=== PATIENT | female | born 2005 | race Caucasian/White ===

== ENCOUNTER 2024-12-11 19:15 | Emergency (ER) | payer BC, SELFPAY ==
[2024-12-11 19:24] VITALS: BP 137/81
--- NOTE | 2024-12-11 21:56 | ED.GENMED ---
History of Present Illness
General
Chief Complaint: Musculo-Skeletal Complaint
Source: patient
Exam Limitations: none
Time Seen by Provider: 12/11/24 21:39
Nursing documentation reviewed up to this point in time: agreed with
History of Present Illness
History of Present Illness:
Patient presents to ED secondary to left wrist pain over the past 6 months, which has worsened over the past 2 days. Patient does not recall any direct trauma. Denies loss of sensation or weakness. Patient states that she has intermittent pain at
rest, but worse with range of motion. Denies previous history of wrist injury. Patient currently works as a nanny, but states that she has not changed any routines.
Review of Systems
Review of Systems
Allergies reviewed?: Yes
All Other Systems: ROS reviewed and negative except as documented in HPI and ROS
Constitutional: Reports no symptoms
Musculoskeletal: Reports joint pain (Wrist pain)
Skin: Reports no symptoms
Neurological: Reports no symptoms; Denies weakness or numbness
Phy Exam
Physical Exam
Physical Exam:
Physical Exam
General: no apparent distress, not acutely ill. afebrile
Head: nc/at. eomi
Neck: supple. normal range of motion
Neuro: alert and oriented x 3. no focal neurological deficits
Skin: no rash
Psychiatric: well kept. interactive and cooperative
Extremities: mild diffuse left wrist tenderness to palpation and w/ range of motion, without ecchymosis/erythema/swelling
Course
Orders/Labs/Results
Orders:
Orders
12/11/24 19:26
Wrist, Left 3 Views CR [CR Wrist - Left Min 3 Views] Urgent
Comment:
Reason For Exam: pain
Vital Signs
Initial and Last Documented VS:
Initial Vital Signs
Temp Pulse Resp BP Pulse Ox
98.5 F 96 16 137/81 98
12/11/24 19:24 12/11/24 19:24 12/11/24 19:24 12/11/24 19:24 12/11/24 19:24
Last Documented Vital Signs
Temp Pulse Resp BP Pulse Ox
98.5 F 96 16 137/81 98
12/11/24 19:24 12/11/24 19:24 12/11/24 19:24 12/11/24 19:24 12/11/24 19:24
MDM/Problems Addressed
MDM/Problems Addressed:
X-ray wrist: No acute findings. Patient presenting with nonspecific wrist pain, without any obvious source of injury. Patient states that she only has Velcro wrist splint at home, which she will utilize and be referred to hand surgery for an
outpatient evaluation.
*Critical Care Note
Total Time (30-74mins, 75-104mins- exclusive of procedures): Not Applicable
ED Attending Note
-
Portions of this chart may have been created with voice recognition software.� Occasional wrong word or��sound alike� substitutions may have occurred due to the inherent limitations of voice recognition software.
Discharge Plan
Departure
Patient Disposition: Home (Routine Discharge)
Date of Disposition: 12/11/24
Time of Disposition: 21:56
Patient with high blood pressure during this ER visit?: Yes
Condition: Good
Discharge Problem:
Painful wrist
Instructions: Common Wrist Injuries ED
Referrals:
NONE,* [Family Provider] -
Mauor Pearson MD [Active] -
Activity Restrictions/Additional Instructions:
As discussed, please follow-up with referred hand surgeon for further evaluation and treatment.
Interventions
Interventions:
*Risk Screen - Suicide Last Done: 12/11/24 19:24
*General Assessment Last Done: 12/11/24 19:24
*Neglect/Abuse Screening Last Done: 12/11/24 19:24
*ED COVID-19 Vaccine History Last Done: 12/11/24 21:57
*Nursing Disposition Last Done: 12/11/24 22:20
ED-Musculoskeletal Assessment Last Done: 12/11/24 21:57
Discharge Date and Time
Discharge Date/Time: 12/11/24 22:21
Print Language: GREEK
== END 2024-12-11 22:21 | disposition home or self-care (01) ==
LOC: EMR 19:15
PROVIDERS: EMERGENCY PHYSICIAN Emergency Medicine
DX: M25.532 Pain in left wrist (principal); R03.0 Elevated blood-pressure reading, without diagnosis of hypertension
CPT/HCPCS: 99283; 73110